=== PATIENT | female | born 1935 | race African-American/Black ===

== ENCOUNTER → 2016-02-29 | Outpatient (CLI) | payer MEDICARE, OTHER ==
[~2016-02-29] MED LIST: ALEVE220 M2 PO; ASPIRIN81 MG ORAL; BEPREVE10 ML OP; BONIVA150 MG ORAL; CALCIUM CARBON650 M2 PO; COLACE100 MG ORAL; COMBIGAN EYE DRO5 ML OP; COQ1050 MG PO; CRESTOR10 M1 ORAL; DOK100 M1 PO; DYAZIDE1 CAP ORAL; FERROUS SULFAT325 MG ORAL; FISH OIL500 MG PO; HYDROCORTISONE30 G1 TP; IMURAN50 MG PO; LINZESS145 MCG PO; LISINOPRIL10 MG ORAL; MAGNESIUM400 M1 PO; MAGNESIUM500 MG PO; METFORMIN HCL1000 M1 ORAL; MIRALAX17 G2 ORAL; MULTI-DAY VITA1 EAC1 ORAL; NORVASC5 MG ORAL; OYSTER SHELL 51 EAC1 PO; PAXIL20 MG ORAL; PLAQUENIL200 MG ORAL; POTASSIUM 25 M25 ME1 PO; PREMARIN VAG CR45 GM VAGIN; SENNA8.6 M2 PO; SENNA8.6 M3 PO; TEKTURNA300 MG ORAL; VITAMIN B IM; VITAMIN B-12100 MCG ORAL; VITAMIN B122500 MCG PO; VITAMIN D22000 UNIT PO; VOLTAREN100 G1 TP; XALATAN2.5 ML BOTH EYES; [UNRECOGNIZED DRUG - REMARK]
--- NOTE | 2016-02-29 13:55 | GI Progress Note ---
Assessment/Plan Problems: (1) Autoimmune hepatitis ICD Codes: K75.4 - Autoimmune hepatitis SNOMED: 866643684 (2) Iron deficiency anemia ICD Codes: D50.9 - Iron deficiency anemia, unspecified SNOMED: 52183154 (3) Colon polyp ICD Codes: K63.5 - Colon polyp SNOMED: 97290253 (4) Anemia ICD Codes: D64.9 - Anemia SNOMED: 408461388 (5) Chronic constipation ICD Codes: K59.00 - Constipation, unspecified SNOMED: 114414383 (6) Diabetes ICD Codes: E11.9 - Diabetes SNOMED: 95252264 Status: stable Status Narrative Seen with Dr. Oconnor. Assessment/Plan s/p SBCE 08/25 >> negative rx amitiza 24mcg obtain labs from Dr. Garcia RTC x 3 months Subjective Gastrointestinal/Abdominal: Reports: diarrhea - occasional, no symptoms Objective T 97.4 BP 108/69 P 66 Denies unintentional weight loss General Appearance: no apparent distress, alert Cardiovascular: normal rate Respiratory/Chest: normal breath sounds, no respiratory distress Abdominal Exam: normal bowel sounds, non tender, soft Extremities: normal range of motion Tameka Cerrato N.P. Feb 29, 2016 13:55
[2016-02-29 15:42] VITALS: BP 108/69
== END | disposition home or self-care (01) ==
LOC: PAN 13:22
DX: K75.4 Autoimmune hepatitis (principal); D50.9 Iron deficiency anemia, unspecified; K63.5 Polyp of colon; D64.9 Anemia, unspecified; K59.00 Constipation, unspecified; E11.9 Type 2 diabetes mellitus without complications
CPT/HCPCS: 99211

== ENCOUNTER → 2016-06-11 | Outpatient (CLI) | payer MEDICARE, OTHER ==
[~2016-06-11] MED LIST changes: +CETIRIZINE HCL10 MG PO
--- NOTE | 2016-06-11 11:49 | GI Progress Note ---
Assessment/Plan Problems: (1) Autoimmune hepatitis ICD Codes: K75.4 - Autoimmune hepatitis SNOMED: 629587570 (2) Chronic constipation ICD Codes: K59.00 - Constipation, unspecified SNOMED: 316666511 (3) Iron deficiency anemia ICD Codes: D50.9 - Iron deficiency anemia, unspecified SNOMED: 02046816 (4) Colon polyp ICD Codes: K63.5 - Colon polyp SNOMED: 39263940 Status: stable Status Narrative Seen with Dr. Oconnor. Assessment/Plan s/p SBCE 08/2015 >> negative cont amitiza 24mcg obtain labs from Dr. Garcia RTC x 3 months Subjective Subjective constipation >> amitiza prn, last BM today labs were drawn at Dr. Cook last month weight gain Objective T 97.3 BP 102/70 P 65 97RA Weight (Pounds): 153 General Appearance: no apparent distress, alert Cardiovascular: normal rate Respiratory/Chest: normal breath sounds, no respiratory distress Abdominal Exam: normal bowel sounds, non tender, soft Extremities: normal range of motion Tameka Cerrato N.P. June 11, 2016 11:49
[2016-06-11 15:01] VITALS: BP 102/76
== END | disposition home or self-care (01) ==
LOC: PAN 09:39
DX: K75.4 Autoimmune hepatitis (principal); K59.00 Constipation, unspecified; D50.9 Iron deficiency anemia, unspecified; K63.5 Polyp of colon
CPT/HCPCS: 99211

== ENCOUNTER 2016-12-03 10:01 | Outpatient (CLI) | payer MEDICARE, OTHER ==
[2016-12-03 10:13] VITALS: BP 83/50
[2016-12-03] MEDS ORDERED: ZANTAC150 MG ORAL (10:23)
[2016-12-03] MEDS ORDERED: PLAVIX75 MG ORAL (10:23)
[2016-12-03] MEDS ORDERED: ASPIRIN81 MG ORAL (10:23)
[2016-12-03 10:30] VITALS: BP 79/56
[2016-12-03 10:45] VITALS: BP 82/60
--- NOTE | 2016-12-03 11:00 | GI Progress Note ---
Assessment/Plan Problems: (1) Hypotension ICD Codes: I95.9 - Hypotension, unspecified SNOMED: 86271368 (2) Diabetes ICD Codes: E11.9 - Diabetes SNOMED: 13919609 (3) Anemia ICD Codes: D64.9 - Anemia SNOMED: 403251770 (4) Weight loss ICD Codes: R63.4 - Weight loss SNOMED: 845655792 (5) Weight loss, intentional SNOMED: 136744632 Status: unchanged Status Narrative Seen with Dr. Oconnor. Assessment/Plan Pt sent to ED via wheelchair for hypotension SBP ~ 80, HR ~ 60. cont Linzess Rx Marinol RTC x 1 week Subjective Subjective abdominal pain LUQ, LLQ, Epigastric GERD + Phlegm constipation >> Linzess 145 mcg not taking everyday N/V x 3 time decrease appetite weight loss Recently had DVT, clot removal and now on Plavix 75mg in September 2016. Objective Last 24 Hour Vital Signs Date Time Temp Pulse Resp B/P (MAP) Pulse Ox O2 Delivery O2 Flow Rate FiO2 12/03/16 10:13 98.1 60 16 83/50 99 General Appearance: WD/WN, no apparent distress, alert Cardiovascular: normal rate Respiratory/Chest: normal breath sounds, no respiratory distress Abdominal Exam: normal bowel sounds, non tender, soft Extremities: normal range of motion, non-tender Tameka Cerrato N.Elvia Dec 03, 2016 11:00
== END 2016-12-03 11:00 | disposition home or self-care (01) ==
LOC: PAN 10:01
DX: I95.9 Hypotension, unspecified (principal); E11.9 Type 2 diabetes mellitus without complications; D64.9 Anemia, unspecified; R63.4 Abnormal weight loss; K59.00 Constipation, unspecified; K21.9 Gastro-esophageal reflux disease without esophagitis; Z86.718 Personal history of other venous thrombosis and embolism; Z79.02 Long term (current) use of antithrombotics/antiplatelets
CPT/HCPCS: 99211

== ENCOUNTER 2016-12-03 11:25 | Emergency (ER) | payer MEDICARE, OTHER ==
[~2016-12-03] VITALS: Ht 170.2 cm; Wt 66.2 kg
[~2016-12-03 11:25] MED LIST changes: +PLAVIX75 MG ORAL; +ZANTAC150 MG ORAL
[2016-12-03 12:00] VITALS: BP 87/69
[2016-12-03 12:15] VITALS: BP 109/64
[2016-12-03 12:27] LABS: BASOPHILS % (AUTO) 1.6 % (0.0-2.0); EOSINOPHILS % (AUTO) 4.2 % (0.0-3.0); LYMPHOCYTES % (AUTO) 18.4 % (20.0-45.0); MEAN CORPUSCULAR HEMOGLOBIN 29.7 PG (27.0-31.0); MEAN CORPUSCULAR HGB CONC 32.6 G/DL (32.0-36.0); MEAN CORPUSCULAR VOLUME 91 FL (80-99); MEAN PLATELET VOLUME 6.9 FL (6.5-10.1); MONOCYTES % (AUTO) 10.4 % (1.0-10.0); NEUTROPHILS % (AUTO) 65.4 % (45.0-75.0); PLATELET COUNT 215 K/UL (150-450); RED BLOOD COUNT 4.29 M/UL (4.20-5.40); RED CELL DISTRIBUTION WIDTH 13.9 % (11.6-14.8); WHITE BLOOD COUNT 4.9 K/UL (4.8-10.8)
[2016-12-03 12:30] VITALS: BP 106/71
[2016-12-03 12:38] LABS: PROTHROMBIN TIME 10.6 SEC (9.30-11.50)
[2016-12-03 12:52] LABS: ALANINE AMINOTRANSFERASE 15 U/L (12-78); ALBUMIN/GLOBULIN RATIO 0.9 (1.0-2.7); ANION GAP 10 mmol/L (5-15); ASPARTATE AMINO TRANSFERASE 15 U/L (15-37); CALCIUM 10.9 MG/DL (8.5-10.1); CARBON DIOXIDE 27 MMOL/L (21-32); CHLORIDE 102 MMOL/L (98-107); CKMB 0.9 NG/ML (0.0-3.6); CREATININE 1.7 MG/DL (0.55-1.30); LIPASE 231 U/L (73-393); POTASSIUM 4.1 MMOL/L (3.5-5.1); SODIUM 139 MMOL/L (136-145); TOTAL PROTEIN 7.9 G/DL (6.4-8.2)
[2016-12-03 13:30] VITALS: BP 106/68
[2016-12-03 14:15] VITALS: BP 106/68
--- NOTE | 2016-12-03 15:33 | Emergency Room Report ---
History of Present Illness General Chief Complaint: Generalized Weakness Source: Patient Present Illness HPI 81-year-old female presents ED for evaluation. Patient was sent from PMD office for evaluation. Blood pressure was low. Patient states she's not been eating well for the last several months. Patient states she feels weak. Denies any dizziness. Denies chest pain shortness of breath. Denies fevers or chills. No other aggravating relieving factors. Denies any other associated symptom Allergies: Coded Allergies: CODEINE (Verified Allergy, Mild, "felt like I was tripping out", 10/26/12) "felt like I was tripping out" Patient History Past Medical History: DM, HTN, GERD Past Surgical History: none Pertinent Family History: none Social History: Denies: smoking, alcohol use, drug use Last Menstrual Period: Post Now: No Immunizations: UTD Reviewed Nursing Documentation: PMH: Agreed, PSxH: Agreed Nursing Documentation-PMH Hx Cardiac Problems: Yes Hx Hypertension: Yes Hx Diabetes: Yes Hx Cancer: No Hx Gastrointestinal Problems: Yes Hx Neurological Problems: Yes Hx Memory Loss: Yes Hx Dizziness: Yes Hx Headaches: Yes Hx Weakness: Yes Review of Systems All Other Systems: negative except mentioned in HPI Physical Exam Vital Signs Date Time Temp Pulse Resp B/P (MAP) Pulse Ox O2 Delivery O2 Flow Rate FiO2 12/03/16 11:34 97.9 65 17 95/68 97 Room Air Sp02 EP Interpretation: reviewed, normal General Appearance: no apparent distress, alert, GCS 15, non-toxic Head: normocephalic, atraumatic Eyes: bilateral eye normal inspection, bilateral eye PERRL ENT: hearing grossly normal, normal pharynx, no angioedema, normal voice Neck: full range of motion, supple/symm/no masses Respiratory: chest non-tender, lungs clear, normal breath sounds, speaking full sentences Cardiovascular #1: regular rate, rhythm, no edema Cardiovascular #2: 2+ carotid (R), 2+ carotid (L), 2+ radial (R), 2+ radial (L) , 2+ dorsalis pedis (R), 2+ dorsalis pedis (L) Gastrointestinal: normal bowel sounds, non tender, soft, non-distended, no guarding, no rebound Rectal: deferred Genitourinary: normal inspection, no CVA tenderness Musculoskeletal: back normal, gait/station normal, normal range of motion, non- tender Neurologic: alert, oriented x3, responsive, motor strength/tone normal, sensory intact, speech normal Psychiatric: judgement/insight normal, memory normal, mood/affect normal, no suicidal/homicidal ideation Reflexes: 3+ bicep (R), 3+ bicep (L), 3+ tricep (R), 3+ tricep (L), 3+ knee (R) , 3+ knee (L) Skin: normal color, no rash, warm/dry, well hydrated Lymphatic: no adenopathy Medical Decision Making Diagnostic Impression: Primary Impression: Dehydration Additional Impression: Episode of generalized weakness ER Course Hospital Course 81-year-old female presenting to ED with generalized weakness, BP low. Differential diagnoses include: sepsis, dehydration, CO/unstable angina, failure to thrive Clinical course Patient placed on stretcher. On director of cardiac cath lab with tachycardia. After initial history and physical, I ordered labs, IV fluids Labs - no leukocytosis, hb/hct stable, BUN/Cr elevated, trop negative On reassessment blood pressure is improved. Patient states she feels better and wishes to be discharged. Discussed with PMD Dr. Oconnor and he agrees I feel this is a highly complex case requiring extensive working including EKG/ Rhythm strip, Xray/CT/US, Blood/urine lab work, repeat exams while in ED, and administration of strong opiates/narcotics for pain control, admission to hospital or close patient follow up. Diagnosis - dehydration, episode of generalized weakness Stable and discharged to home. Followup with PMD. Return to ED if symptoms recur or worsen Labs Test 12/03/16 11:55 White Blood Count 4.9 K/UL (4.8-10.8) Red Blood Count 4.29 M/UL (4.20-5.40) Hemoglobin 12.7 G/DL (12.0-16.0) Hematocrit 39.0 % (37.0-47.0) Mean Corpuscular Volume 91 FL (80-99) Mean Corpuscular Hemoglobin 29.7 PG (27.0-31.0) Mean Corpuscular Hemoglobin Concent 32.6 G/DL (32.0-36.0) Red Cell Distribution Width 13.9 % (11.6-14.8) Platelet Count 215 K/UL (150-450) Mean Platelet Volume 6.9 FL (6.5-10.1) Neutrophils (%) (Auto) 65.4 % (45.0-75.0) Lymphocytes (%) (Auto) 18.4 % (20.0-45.0) Monocytes (%) (Auto) 10.4 % (1.0-10.0) Eosinophils (%) (Auto) 4.2 % (0.0-3.0) Basophils (%) (Auto) 1.6 % (0.0-2.0) Prothrombin Time 10.6 SEC (9.30-11.50) Prothromb Time International Ratio 1.0 (0.9-1.1) Sodium Level 139 MMOL/L (136-145) Potassium Level 4.1 MMOL/L (3.5-5.1) Chloride Level 102 MMOL/L (98-107) Carbon Dioxide Level 27 MMOL/L (21-32) Anion Gap 10 mmol/L (5-15) Blood Urea Nitrogen 33 mg/dL (7-18) Creatinine 1.7 MG/DL (0.55-1.30) Estimat Glomerular Filtration Rate mL/min (>60) Glucose Level 98 MG/DL (74-106) Calcium Level 10.9 MG/DL (8.5-10.1) Total Bilirubin 0.5 MG/DL (0.2-1.0) Aspartate Amino Transf (AST/SGOT) 15 U/L (15-37) Alanine Aminotransferase (ALT/SGPT) 15 U/L (12-78) Alkaline Phosphatase 57 U/L (46-116) Creatine Kinase MB 0.9 NG/ML (0.0-3.6) Troponin I 0.008 ng/mL (0.000-0.056) Total Protein 7.9 G/DL (6.4-8.2) Albumin 3.8 G/DL (3.4-5.0) Globulin 4.1 g/dL Albumin/Globulin Ratio 0.9 (1.0-2.7) Lipase 231 U/L (73-393) Last Vital Signs Date Time Temp Pulse Resp B/P (MAP) Pulse Ox O2 Delivery O2 Flow Rate FiO2 12/03/16 12:30 56 16 106/71 95 Room Air 12/03/16 11:34 97.9 Status: improved Disposition: HOME, SELF-CARE Condition: Stable Patient Instructions: Dehydration, Elderly, [id number] GABRIELA GOYAL M.D. Dec 03, 2016 15:33
== END 2016-12-03 14:15 | disposition home or self-care (01) ==
LOC: EMR 11:50
DX: R53.1 Weakness (principal); E86.0 Dehydration; E11.9 Type 2 diabetes mellitus without complications; I10 Essential (primary) hypertension; K21.9 Gastro-esophageal reflux disease without esophagitis; Z88.6 Allergy status to analgesic agent
CPT/HCPCS: 36415; 80053; 82553; 83690; 84484; 85025; 85610; 86850; 86900; 86901; 96360; 99284

== ENCOUNTER 2016-12-10 09:50 | Outpatient (CLI) | payer MEDICARE, OTHER ==
--- NOTE | 2016-12-10 10:25 | GI Progress Note ---
Assessment/Plan Problems: (1) Episode of generalized weakness ICD Codes: R53.1 - Weakness SNOMED: 30620515 (2) Dehydration ICD Codes: E86.0 - Dehydration SNOMED: 72498775 (3) Weight loss, intentional SNOMED: 260561654 (4) Weight loss ICD Codes: R63.4 - Weight loss SNOMED: 603010147 (5) Diabetes ICD Codes: E11.9 - Diabetes SNOMED: 51146872 (6) Anemia ICD Codes: D64.9 - Anemia SNOMED: 240685484 (7) Iron deficiency anemia ICD Codes: D50.9 - Iron deficiency anemia, unspecified SNOMED: 03424909 Status: stable Status Narrative Seen with Dr. Oconnor. Assessment/Plan dc marinol hold lisinopril push PO + ensure cont linzess RTC x 3 months Subjective Gastrointestinal/Abdominal: Reports: no symptoms Subjective feels better unable to fill marinol appetite has increased, taking ensure Objective T 97.6 BP 116/85 P 74 General Appearance: WD/WN, no apparent distress, alert Cardiovascular: normal rate Respiratory/Chest: normal breath sounds, no respiratory distress Abdominal Exam: normal bowel sounds, non tender, soft Extremities: normal range of motion, non-tender Tameka Cerrato N.P. Dec 10, 2016 10:25
[2016-12-10] MEDS ORDERED: OMEPRAZOLE40 M1 ORAL (10:28)
[2016-12-10 11:40] VITALS: BP 116/85
== END 2016-12-10 10:30 | disposition home or self-care (01) ==
LOC: PAN 09:50
DX: R63.4 Abnormal weight loss (principal); R53.1 Weakness; E86.0 Dehydration; E11.9 Type 2 diabetes mellitus without complications; D64.9 Anemia, unspecified; D50.9 Iron deficiency anemia, unspecified
CPT/HCPCS: 99211

== ENCOUNTER 2017-03-20 14:05 | Outpatient (CLI) | payer MEDICARE, OTHER ==
[~2017-03-20 14:05] MED LIST changes: +OMEPRAZOLE40 M1 ORAL
[2017-03-20 14:24] VITALS: BP 137/90
--- NOTE | 2017-03-20 14:59 | GI Progress Note ---
Assessment/Plan Problems: (1) Iron deficiency anemia ICD Codes: D50.9 - Iron deficiency anemia, unspecified SNOMED: 37269223 (2) Weight loss, intentional SNOMED: 237152671 (3) Episode of generalized weakness ICD Codes: R53.1 - Weakness SNOMED: 07949028 (4) Anemia ICD Codes: D64.9 - Anemia SNOMED: 042483385 (5) Dehydration ICD Codes: E86.0 - Dehydration SNOMED: 88611921 Status: stable Status Narrative Seen with Dr. Oconnor. Assessment/Plan push PO + ensure, eating better hold linzess, trial Amitiza RTC x 1 month Subjective Subjective weight gain eats better Ensure 2xdaily Objective Last 24 Hour Vital Signs Date Time Temp Pulse Resp B/P (MAP) Pulse Ox O2 Delivery O2 Flow Rate FiO2 03/20/17 14:24 97.8 69 16 137/90 Weight (Pounds): 150 General Appearance: WD/WN, no apparent distress, alert Cardiovascular: normal rate Respiratory/Chest: normal breath sounds, no respiratory distress Abdominal Exam: normal bowel sounds, non tender, soft Extremities: normal range of motion, non-tender Tameka Cerrato N.P. Mar 20, 2017 14:58
== END 2017-03-20 14:39 | disposition home or self-care (01) ==
LOC: PAN 14:05
DX: D64.9 Anemia, unspecified (principal); E86.0 Dehydration; R53.1 Weakness; R63.4 Abnormal weight loss; D50.9 Iron deficiency anemia, unspecified
CPT/HCPCS: 99212

== ENCOUNTER 2017-10-21 09:19 | Outpatient (CLI) | payer MEDICARE, OTHER ==
--- NOTE | 2017-10-21 11:18 | GI Progress Note ---
Assessment/Plan Problems: (1) Autoimmune hepatitis ICD Codes: K75.4 - Autoimmune hepatitis SNOMED: 582186332 Status: stable Status Narrative Seen with Dr. Oconnor. Assessment/Plan Labs reviewed and discussed with PMD >> has elevated LFTs 2/2 to AIH flare Rx Prednisone 40mg daily increase Imuran to 50mg RTC x 1 week The patient was seen and examined at bedside and all new and available data was reviewed in the patients chart. I agree with the above findings, impression and plan. (Patient seen earlier today. Signature stamp does not reflect patient encounter time.). - Ortiz Oconnor MD Subjective Subjective denies any GI symptoms noted at this time has history of constipation, but no complaints Objective T 97.4 BP 105/65 P 80 96 RA General Appearance: WD/WN, no apparent distress, alert, thin Cardiovascular: normal rate Respiratory/Chest: normal breath sounds, no respiratory distress Abdominal Exam: normal bowel sounds, non tender, soft Extremities: normal range of motion, non-tender, other - unsteady gait Bria Cerrato NP Oct 21, 2017 11:18
[2017-10-21 12:15] VITALS: BP 105/65
== END 2017-10-21 09:49 | disposition home or self-care (01) ==
LOC: PAN 09:19
DX: K75.4 Autoimmune hepatitis (principal)
CPT/HCPCS: 99212

== ENCOUNTER 2017-10-28 09:06 | Outpatient (CLI) | payer MEDICARE, OTHER ==
[2017-10-28 10:19] VITALS: BP 120/71
[2017-10-28] MEDS ORDERED: PREDNISONE20 MG ORAL (10:23)
--- NOTE | 2017-10-28 10:36 | GI Progress Note ---
Assessment/Plan Problems: (1) Autoimmune hepatitis ICD Codes: K75.4 - Autoimmune hepatitis SNOMED: 641194374 (2) Episode of generalized weakness ICD Codes: R53.1 - Weakness SNOMED: 68057646 (3) Weight loss, intentional SNOMED: 999865614 (4) Anemia ICD Codes: D64.9 - Anemia SNOMED: 062241594 (5) Dehydration ICD Codes: E86.0 - Dehydration SNOMED: 97138983 Status: stable Status Narrative Discussed with Dr. Oconnor. Assessment/Plan LFTs drawn today cont prednisone 40 and Imuran 50 RTC x1 week The patient was seen and examined at bedside and all new and available data was reviewed in the patients chart. I agree with the above findings, impression and plan. (Patient seen earlier today. Signature stamp does not reflect patient encounter time.). - Ortiz Oconnor MD Subjective Gastrointestinal/Abdominal: Reports: no symptoms, constipated - occasional, on senna Objective Last 24 Hour Vital Signs Date Time Temp Pulse Resp B/P (MAP) Pulse Ox O2 Delivery O2 Flow Rate FiO2 10/28/17 10:19 98.2 60 16 120/71 98 98.2 General Appearance: WD/WN, no apparent distress, alert Cardiovascular: normal rate Respiratory/Chest: normal breath sounds, no respiratory distress Abdominal Exam: normal bowel sounds, non tender, soft Extremities: normal range of motion, non-tender Bria Cerrato [employer] Oct 28, 2017 10:36
[2017-10-28 13:25] LABS: ALANINE AMINOTRANSFERASE 19 U/L (12-78); ALBUMIN 3.4 G/DL (3.4-5.0); ALKALINE PHOSPHATASE 150 U/L (46-116); ASPARTATE AMINO TRANSFERASE 18 U/L (15-37); BILIRUBIN,DIRECT 0.3 MG/DL (0.0-0.3); BILIRUBIN,TOTAL 0.9 MG/DL (0.2-1.0)
== END 2017-10-28 09:36 | disposition home or self-care (01) ==
LOC: PAN 09:06
DX: K75.4 Autoimmune hepatitis (principal); R53.1 Weakness; D64.9 Anemia, unspecified; E86.0 Dehydration
CPT/HCPCS: 36415; 80076; G0463; 99212

== ENCOUNTER 2017-11-04 08:54 | Outpatient (CLI) | payer MEDICARE, OTHER ==
[~2017-11-04 08:54] MED LIST changes: +PREDNISONE20 MG ORAL
[2017-11-04 13:12] VITALS: BP 95/74
--- NOTE | 2017-11-07 09:36 | GI Progress Note ---
Assessment/Plan Problems: (1) Episode of generalized weakness ICD Codes: R53.1 - Weakness SNOMED: 22761145 (2) Weight loss, intentional SNOMED: 920370922 (3) Anemia ICD Codes: D64.9 - Anemia SNOMED: 012584918 (4) Dehydration ICD Codes: E86.0 - Dehydration SNOMED: 68617525 (5) AAA (abdominal aortic aneurysm) ICD Codes: I71.4 - Abdominal aortic aneurysm, without rupture SNOMED: 307557377 Status: stable Status Narrative Seen with Dr. Oconnor. Assessment/Plan Prednisone Taper cont Imuran RTC x 2 weeks The patient was seen and examined at bedside and all new and available data was reviewed in the patients chart. I agree with the above findings, impression and plan. (Patient seen earlier today. Signature stamp does not reflect patient encounter time.). - Ortiz Oconnor MD Subjective Subjective constipation resolved with senna 8.6 new onset of fatigue Objective T 97.6 BP 95/54 P 58 WT 133 lbs General Appearance: WD/WN, no apparent distress, alert Cardiovascular: normal rate Respiratory/Chest: normal breath sounds, no respiratory distress Abdominal Exam: normal bowel sounds, non tender, soft Extremities: normal range of motion, non-tender Bria Cerrato NP Nov 07, 2017 09:36
== END 2017-11-04 09:24 | disposition home or self-care (01) ==
LOC: PAN 08:54
DX: R53.1 Weakness (principal); D64.9 Anemia, unspecified; E86.0 Dehydration; I71.4 Abdominal aortic aneurysm, without rupture
CPT/HCPCS: 99212

== ENCOUNTER 2017-11-18 09:11 | Outpatient (CLI) | payer MEDICARE, OTHER ==
[2017-11-18 09:30] VITALS: BP 92/68
--- NOTE | 2017-11-18 10:03 | GI Progress Note ---
Assessment/Plan Problems: (1) Episode of generalized weakness ICD Codes: R53.1 - Weakness SNOMED: 63262046 (2) Weight loss, intentional SNOMED: 106800031 (3) Dehydration ICD Codes: E86.0 - Dehydration SNOMED: 77072350 (4) Anemia ICD Codes: D64.9 - Anemia SNOMED: 445208107 (5) Chronic constipation ICD Codes: K59.00 - Constipation, unspecified SNOMED: 615532134 Status: stable Status Narrative Discussed with Dr. Oconnor. Assessment/Plan Steroid Saadia Cont Imuran RTC x1 month The patient was seen and examined at bedside and all new and available data was reviewed in the patients chart. I agree with the above findings, impression and plan. (Patient seen earlier today. Signature stamp does not reflect patient encounter time.). - Ortiz Oconnor MD Subjective Subjective appetite has increased energy increased on senna, colace back pain still present Objective Last 24 Hour Vital Signs Date Time Temp Pulse Resp B/P (MAP) Pulse Ox O2 Delivery O2 Flow Rate FiO2 11/18/17 09:30 67 16 92/68 95 Weight (Pounds): 136 General Appearance: WD/WN, no apparent distress, alert Cardiovascular: normal rate Respiratory/Chest: normal breath sounds, no respiratory distress Abdominal Exam: normal bowel sounds, non tender, soft Extremities: normal range of motion, non-tender Bria Cerrato [employer] Nov 18, 2017 10:03
== END 2017-11-18 09:41 | disposition home or self-care (01) ==
LOC: PAN 09:11
DX: R53.1 Weakness (principal); E86.0 Dehydration; E64.9 Sequelae of unspecified nutritional deficiency; K59.00 Constipation, unspecified

== ENCOUNTER 2017-12-23 09:51 | Outpatient (CLI) | payer MEDICARE, OTHER ==
[2017-12-23 10:15] VITALS: BP 116/84
--- NOTE | 2017-12-24 16:48 | GI Progress Note ---
Assessment/Plan Problems: (1) Episode of generalized weakness ICD Codes: R53.1 - Weakness SNOMED: 41825024 (2) Chronic constipation ICD Codes: K59.00 - Constipation, unspecified SNOMED: 763894313 (3) Anemia ICD Codes: D64.9 - Anemia SNOMED: 391062541 (4) Dehydration ICD Codes: E86.0 - Dehydration SNOMED: 95694494 (5) Iron deficiency anemia ICD Codes: D50.9 - Iron deficiency anemia, unspecified SNOMED: 98864100 (6) Weight loss ICD Codes: R63.4 - Weight loss SNOMED: 860568180 Status: stable Status Narrative Discussed with Dr. Oconnor. Assessment/Plan dc steroids cont Imuran patient had blood drawn this morning by PCP >> follow up LFTs RTC x 1 month The patient was seen and examined at bedside and all new and available data was reviewed in the patients chart. I agree with the above findings, impression and plan. (Patient seen earlier today. Signature stamp does not reflect patient encounter time.). - Ortiz Oconnor MD Subjective Subjective constipation, taking senna and colace. BM has gotten better. Objective T 97.0 BP 116/84 P 52 98 RA General Appearance: WD/WN, no apparent distress, alert Cardiovascular: normal rate Respiratory/Chest: normal breath sounds, no respiratory distress Abdominal Exam: normal bowel sounds, non tender, soft Extremities: normal range of motion, non-tender Bria Cerrato NP Dec 24, 2017 16:48
== END 2017-12-23 10:21 | disposition home or self-care (01) ==
LOC: PAN 09:51
DX: R53.1 Weakness (principal); K59.00 Constipation, unspecified; E86.0 Dehydration; D50.9 Iron deficiency anemia, unspecified; R63.4 Abnormal weight loss
CPT/HCPCS: 99212

== ENCOUNTER 2018-04-08 12:50 | Outpatient (CLI) | payer MEDICARE, OTHER ==
--- NOTE | 2018-04-08 14:29 | General Progress Note ---
Assessment/Plan Problem List: (1) HTN (hypertension) ICD Codes: I10 - HTN (hypertension) SNOMED: 12386838 (2) Gallstones ICD Codes: K80.20 - Calculus of gallbladder without cholecystitis without obstruction SNOMED: 590234369 (3) Colon polyp ICD Codes: K63.5 - Colon polyp SNOMED: 67508214 (4) Diabetes ICD Codes: E11.9 - Diabetes SNOMED: 86296334 (5) Autoimmune hepatitis ICD Codes: K75.4 - Autoimmune hepatitis SNOMED: 157632232 Assessment/Plan recent labs reviewed normal LFTS rtc 3 months cont imuran 50 mg Subjective ROS Limited/Unobtainable: Yes Allergies: Coded Allergies: CODEINE (Verified Allergy, Mild, "felt like I was tripping out", 10/26/12) "felt like I was tripping out" Objective General Appearance: alert EENT: normal ENT inspection Neck: supple Cardiovascular: normal rate Respiratory/Chest: lungs clear Abdomen: normal bowel sounds, non tender, soft Extremities: non-tender Ortiz Oconnor MD Apr 08, 2018 14:29
[2018-04-08 15:50] VITALS: BP 104/64
== END 2018-04-08 13:20 | disposition home or self-care (01) ==
LOC: PAN 12:50
DX: I10 Essential (primary) hypertension (principal); K80.20 Calculus of gallbladder without cholecystitis without obstruction; K63.5 Polyp of colon; E11.9 Type 2 diabetes mellitus without complications; K75.4 Autoimmune hepatitis; Z88.5 Allergy status to narcotic agent
CPT/HCPCS: 99212

== ENCOUNTER 2018-06-16 09:30 | Outpatient (CLI) | payer MEDICARE, OTHER ==
[2018-06-16 09:20] VITALS: BP 103/75
--- NOTE | 2018-06-16 09:50 | General Progress Note ---
Assessment/Plan Problem List: (1) Autoimmune hepatitis ICD Codes: K75.4 - Autoimmune hepatitis SNOMED: 535743645 (2) Gallstones ICD Codes: K80.20 - Calculus of gallbladder without cholecystitis without obstruction SNOMED: 945829121 (3) HTN (hypertension) ICD Codes: I10 - HTN (hypertension) SNOMED: 84133254 (4) Diabetes ICD Codes: E11.9 - Diabetes SNOMED: 07657525 (5) Colon polyp ICD Codes: K63.5 - Colon polyp SNOMED: 18634763 (6) Episode of generalized weakness ICD Codes: R53.1 - Weakness SNOMED: 41576286 (7) Chronic constipation ICD Codes: K59.00 - Constipation, unspecified SNOMED: 123305852 (8) Iron deficiency anemia ICD Codes: D50.9 - Iron deficiency anemia, unspecified SNOMED: 35206514 (9) AAA (abdominal aortic aneurysm) ICD Codes: I71.4 - Abdominal aortic aneurysm, without rupture SNOMED: 219090509 Assessment/Plan: cont Imuran 50 mg obtain labs from Dr. Cook RTC 3 months Subjective ROS Limited/Unobtainable: Yes Allergies: Coded Allergies: CODEINE (Verified Allergy, Mild, "felt like I was tripping out", 10/26/12) "felt like I was tripping out" Objective General Appearance: alert EENT: normal ENT inspection Neck: supple Cardiovascular: normal rate Respiratory/Chest: lungs clear Abdomen: normal bowel sounds, non tender, soft Extremities: non-tender Ortiz Oconnor MD June 16, 2018 09:50
[2018-06-16] MEDS ORDERED: COMBIGAN EYE DRO5 ML OP (10:57)
[2018-06-16] MEDS ORDERED: AMLODIPINE BESYL5 MG ORAL (10:57)
[2018-06-16] MEDS ORDERED: ATORVASTATIN CA40 MG ORAL (10:57)
[2018-06-16] MEDS ORDERED: METOPROLOL TART25 MG ORAL (10:57)
== END 2018-06-16 12:55 | disposition home or self-care (01) ==
LOC: PAN 09:30
DX: K80.20 Calculus of gallbladder without cholecystitis without obstruction (principal); K75.4 Autoimmune hepatitis; I10 Essential (primary) hypertension; E11.9 Type 2 diabetes mellitus without complications; K63.5 Polyp of colon; R53.1 Weakness; K59.00 Constipation, unspecified; D50.9 Iron deficiency anemia, unspecified; I71.4 Abdominal aortic aneurysm, without rupture; Z88.6 Allergy status to analgesic agent
CPT/HCPCS: 99212

== ENCOUNTER 2019-03-09 10:06 | Outpatient (CLI) | payer MEDICARE, OTHER ==
[~2019-03-09 10:06] MED LIST changes: +AMLODIPINE BESYL5 MG ORAL; +ATORVASTATIN CA40 MG ORAL; +METOPROLOL TART25 MG ORAL
--- NOTE | 2019-03-09 10:47 | General Progress Note ---
Assessment/Plan Assessment/Plan: Assessment/Plan Problem List: (1) Chronic constipation ICD Codes: K59.00 - Constipation, unspecified SNOMED: 482537930 (2) AAA (abdominal aortic aneurysm) ICD Codes: I71.4 - Abdominal aortic aneurysm, without rupture SNOMED: 374706523 (3) Iron deficiency anemia ICD Codes: D50.9 - Iron deficiency anemia, unspecified SNOMED: 71619725 (4) Autoimmune hepatitis ICD Codes: K75.4 - Autoimmune hepatitis SNOMED: 763575943 (5) Gallstones ICD Codes: K80.20 - Calculus of gallbladder without cholecystitis without obstruction SNOMED: 415028487 (6) HTN (hypertension) ICD Codes: I10 - HTN (hypertension) SNOMED: 66971705 (7) Diabetes ICD Codes: E11.9 - Diabetes SNOMED: 46328373 (8) Colon polyp ICD Codes: K63.5 - Colon polyp SNOMED: 02862115 (9) Anemia ICD Codes: D64.9 - Anemia SNOMED: 963562399 Assessment/Plan: cont imuran 50 mg RTC 3 months Subjective ROS Limited/Unobtainable: Yes Allergies: Coded Allergies: CODEINE (Verified Allergy, Mild, "felt like I was tripping out", 10/26/12) "felt like I was tripping out" Objective General Appearance: alert EENT: normal ENT inspection Neck: supple Cardiovascular: normal rate Respiratory/Chest: lungs clear Abdomen: normal bowel sounds, non tender, soft Extremities: non-tender Ortiz Oconnor MD Mar 09, 2019 10:47
[2019-03-09 13:47] VITALS: BP 132/82
== END 2019-03-09 12:06 | disposition home or self-care (01) ==
LOC: PAN 10:06
DX: K59.00 Constipation, unspecified (principal); I71.4 Abdominal aortic aneurysm, without rupture; D50.9 Iron deficiency anemia, unspecified; K75.4 Autoimmune hepatitis; K80.20 Calculus of gallbladder without cholecystitis without obstruction; I10 Essential (primary) hypertension; E11.9 Type 2 diabetes mellitus without complications; K63.5 Polyp of colon; D64.9 Anemia, unspecified; Z88.6 Allergy status to analgesic agent
CPT/HCPCS: 99212

== ENCOUNTER 2019-08-24 10:06 | Outpatient (CLI) | payer MEDICARE, OTHER ==
[2019-08-24] MEDS ORDERED: SENNA8.6 M2 PO (14:22)
[2019-08-24] MEDS ORDERED: [UNRECOGNIZED DRUG - OTHER] PO (14:22)
== END 2019-08-24 12:06 | disposition home or self-care (01) ==
DX: R63.4 Abnormal weight loss (principal); M19.90 Unspecified osteoarthritis, unspecified site; R52 Pain, unspecified

== ENCOUNTER 2020-01-04 10:17 | Outpatient (CLI) | payer MEDICARE, OTHER ==
[~2020-01-04 10:17] MED LIST changes: +[UNRECOGNIZED DRUG - OTHER] PO
== END 2020-01-04 12:17 | disposition home or self-care (01) ==
LOC: PAN 10:17
DX: R10.9 Unspecified abdominal pain (principal)
CPT/HCPCS: 99212